=== PATIENT | male | born 1985 | race Caucasian/White ===

== ENCOUNTER 2019-09-08 10:04 | Observation (INO) ==
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
[2019-09-08 11:09] LABS: AGAP 14; ALB/GLOB RATIO 1.3; ALBUMIN 4.4 g/dL (3.5-5.0); ALKALINE PHOSPHATASE 78 U/L (32-122); BUN 12 mg/dL (8-22); CALCIUM 9.3 mg/dL (8.8-10.2); CHLORIDE 104 mmol/L (98-107); COSMO 284; CREATININE 0.8 mg/dL (0.7-1.2); ESTIMATED GFR > 60; GLUCOSE 151 mg/dL (70-104); GOT 49 U/L (10-34); GPT 65 U/L (10-44); POTASSIUM 3.9 mmol/L (3.5-5.1); SODIUM 141 mmol/L (136-145); TCO2 23 mmol/L (25-35); TOTAL BILIRUBIN 0.67 mg/dL (0.20-1.00); TOTAL PROTEIN 7.8 g/dL (6.3-8.3)
[2019-09-08] MEDS ORDERED: ZOFRAN IV ONE (11:39)
[2019-09-08] MEDS ORDERED: MORPHINE IV ONE (11:39)
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
--- NOTE | 2019-09-08 14:50 | EKG Report ---
Test Performed on : 09/08/2019 2:16:42 PM Test Reason : CP Blood Pressure : / mmHG Vent. Rate : 085 BPM Atrial Rate : 085 BPM P-R Int : 132 ms QRS Dur : 092 ms QT Int : 368 ms P-R-T Axes : 034 029 054 degrees QTc Int : 437 ms Normal sinus rhythm. Normal ECG No previous ECGs available Unconfirmed Result
[2019-09-08] MEDS ORDERED: SODIUM CHLORIDE 0.9% INJ PRN (15:32)
[2019-09-08] MEDS ORDERED: DESYREL PO PRN (15:32)
[2019-09-08] MEDS ORDERED: PHENERGAN IV PRN (15:32)
[2019-09-08] MEDS: MORPHINE IV PRN ×2 (16:28→20:45)
[2019-09-08] MEDS: NAPROSYN PO SCH ×2 (17:32→23:45)
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
[2019-09-09] MEDS: MORPHINE IV PRN ×4 (02:12→14:51)
--- NOTE | 2019-09-09 07:55 | Diag Imaging Result Doc PS360 ---
EXAM: CHEST-2 VIEWS HISTORY: rib and sternum fracture TECHNIQUE: Two views COMPARISON: None. FINDINGS: Sternal fracture is again demonstrated. No pneumothorax. There is basilar atelectasis. The mediastinum is not widened. Trace pleural fluid. The rib fractures seen on the recent CT are poorly seen on the plain film. IMPRESSION: Sternal fracture with basilar atelectasis Electronically signed by Adonay Montoya 09/09/2019 7:53 AM
[2019-09-09] MEDS ORDERED: FORTICAL NAS SCH (09:00)
[2019-09-09] MEDS ORDERED: GLUCOPHAGE PO SCH (09:00)
[2019-09-09] MEDS: NAPROSYN PO SCH (10:08)
[2019-09-09 11:24] VITALS: BP 137/76
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
== END 2019-09-09 14:55 | disposition home or self-care (01) ==
LOC: SUPCPDRO → 4N 10:04 → ED 10:04
PROVIDERS: ADMIT Internal Medicine; ATTEND Internal Medicine